=== PATIENT | male | born 1950 | race Caucasian/White ===

== ENCOUNTER → 2017-02-03 | Outpatient (CLI) | payer MEDICARE, OTHER ==
[~2017-02-03] MED LIST: ALPHAGAN EYE; ASPIRIN ADULT L81 M1 PO; COSOPT INTRAOC; GLYBURIDE2.5 MG PO; GRALISE300 M1 PO; IBUPROFEN600 MG PO; LATANOPROST OPTH; LISINOPRIL/HCTZ1 TA3 PO; METFORMIN500 MG PO; OMEPRAZOLE20 M1 PO; SIMBRINZA 1%-0.28 ML OP; SIMVASTATIN20 MG PO
== END | disposition home or self-care (01) ==
LOC: RAD 11:21
DX: M25.511 Pain in right shoulder (principal)

== ENCOUNTER → 2018-08-26 | Outpatient (CLI) | payer MEDICARE, OTHER ==
[~2018-08-26] MED LIST changes: +MIRAPEX1.5 MG PO; +ZANTAC 150150 MG PO
--- NOTE | ~2018-08-26 | ST ---
[place], [place] EXERCISE STRESS TEST REPORT NAME: ADRIEL FOURNIER [id number] UNIT #: [id number] ROOM: DOCTOR: SHANELLE WILLARD MD BIRTHDATE: [birth year] DOS: 08/26/2018 PHARMACOLOGICAL NUCLEAR STRESS TEST A 68-year-old white male, height 70 inches, weight 208 pounds. Clinical diagnosis is precordial substernal discomfort and shortness of breath and fatigue. Baseline heart rate of 69 with blood pressure of 104/72. Baseline oxygen saturation of 99%. EKG is sinus rhythm, within normal limits and occasional unifocal PVCs are noted. A 0.4 mg of Lexiscan was infused over 10 seconds and nuclear injection was made at 40 seconds and the patient was observed for 4 minutes post-injection. This patient felt lightheadedness and some tightness in the stomach and some breathlessness immediately post-injection of Lexiscan, which lasted for a few minutes. As far as EKG is concerned, no abnormal ST-T wave changes noted. The patient continued to have isolated unifocal PVCs. From EKG point of view, this is a negative study and final impression pending nuclear images. Heart rate and blood pressure response was physiological. SHANELLE WILLARD MD CM:STRESS:EXERCISE STRESS TEST REPORT [id number] SHANELLE WILLARD MD
== END | disposition home or self-care (01) ==
LOC: CARD 00:52
DX: R07.2 Precordial pain (principal); R00.2 Palpitations; R06.02 Shortness of breath; R06.00 Dyspnea, unspecified

== ENCOUNTER 2019-12-25 03:29 | Emergency (ER) | payer MEDICARE, OTHER ==
[~2019-12-25] VITALS: Ht 177.8 cm; Wt 95.3 kg
[2019-12-25 03:53] LABS: BASO % 0.3 % (0.0-1.0); EOS % 0.7 % (1.0-4.0); HEMATOCRIT 43.5 % (42.0-52.0); HEMOGLOBIN 14.3 g/dl (14.0-18.0); LYMPH # 1.2 10*3/uL (1.3-4.4); LYMPH % 20.3 % (27.0-41.0); MEAN CELL VOLUME 86.5 fl (80.0-94.0); MEAN CORPUSCULAR HGB 28.4 pg (27.0-31.0); MEAN CORPUSCULAR HGB CONC 32.9 g/dl (33.0-37.0); MEAN PLATELET VOLUME 10.1 fl (9.6-12.3); MONO # 0.5 10*3/uL (0.1-1.0); NEUT # 4.1 10*3/uL (2.3-7.9); NEUT % 69.2 % (47.0-73.0); PLATELET COUNT AUTOMATED 158 10*3/uL (130-400); RED BLOOD COUNT 5.03 10*6/uL (4.50-5.90); RED CELL DISTRI WIDTH 12.5 % (0-14.5); WHITE BLOOD COUNT 5.9 10*3/uL (4.8-10.8)
[2019-12-25 04:02] LABS: ACT PARTIAL THROMBO TIME 25.1 SECONDS (20.0-32.1)
[2019-12-25 04:08] LABS: ALBUMIN 3.6 gm/dl (3.1-4.5); ALKALINE PHOSPHATASE 66 U/L (45-117); BUN 15 mg/dl (7-24); CHLORIDE 101 mmol/L (98-107); CREATININE 1.54 mg/dL (0.70-1.30); POTASSIUM 3.8 mmol/L (3.5-5.1); SGOT/AST 29 IU/L (3-35); SGPT/ALT 30 U/L (12-78); SODIUM 134 mmol/L (136-145)
[2019-12-25 04:09] LABS: TROPONIN I < 0.015 ng/ml (<0.045)
== END 2019-12-25 06:45 | disposition left against medical advice (07) ==
LOC: ED 03:29
PROVIDERS: Emergency Medicine Emergency Medical Services
DX: R55 Syncope and collapse (principal); E86.0 Dehydration; E11.9 Type 2 diabetes mellitus without complications; I10 Essential (primary) hypertension; E78.00 Pure hypercholesterolemia, unspecified; Z79.84 Long term (current) use of oral hypoglycemic drugs; Z79.899 Other long term (current) drug therapy

== ENCOUNTER → 2021-06-27 | Outpatient (CLI) | payer MEDICARE, OTHER | END | disposition home or self-care (01) | LOC: COVID19 14:53 | PROVIDERS: ATTEND Student in an Organized Health Care Education/Training Program | DX: Z11.52 Encounter for screening for COVID-19 (principal) ==

== ENCOUNTER → 2022-01-13 | Outpatient (CLI) | payer MEDICARE, OTHER ==
[2022-01-13 12:28] LABS: BILIRUBIN Negative (Negative); BLOOD Negative (Negative); CLARITY Clear (Clear); COLOR Yellow (Yellow); GLUCOSE Negative (Negative); KETONE Negative (Negative); LEUKO ESTERASE Negative (Negative); NITRITE Negative (Negative); PH 5.5 (4.5-8.0); SPECIFIC GRAVITY 1.015 (1.001-1.030); UROBILINOGEN 0.2 E.U./dl (0.0-1.0)
[2022-01-13 13:49] LABS: EPITHELIAL CELLS 0-2
== END | disposition home or self-care (01) ==
LOC: LAB 11:07
PROVIDERS: ATTEND Nurse Practitioner Family
DX: N40.1 Benign prostatic hyperplasia with lower urinary tract symptoms (principal); R30.0 Dysuria

== ENCOUNTER → 2022-03-11 | Outpatient (CLI) | payer MEDICARE, OTHER ==
[2022-03-11 11:39] LABS: CREATININE 1.49 mg/dL (0.70-1.30)
== END | disposition home or self-care (01) ==
LOC: LAB 10:14
PROVIDERS: ATTEND Urology
DX: R10.2 Pelvic and perineal pain (principal); R10.0 Acute abdomen

== ENCOUNTER → 2022-03-12 | Outpatient (CLI) | payer MEDICARE, OTHER | END | disposition home or self-care (01) | LOC: CT 00:06 | PROVIDERS: ATTEND Urology | DX: N40.0 Benign prostatic hyperplasia without lower urinary tract symptoms (principal); K80.20 Calculus of gallbladder without cholecystitis without obstruction; K59.00 Constipation, unspecified; I25.10 Atherosclerotic heart disease of native coronary artery without angina pectoris; R10.0 Acute abdomen ==

== ENCOUNTER → 2023-01-30 | Outpatient (CLI) | payer MEDICARE, OTHER | END | disposition home or self-care (01) | LOC: LAB 10:16 | PROVIDERS: ATTEND Urology | DX: R97.20 Elevated prostate specific antigen [PSA] (principal) ==